=== PATIENT | female | born 1985 | race American Indian/Alaskan Native ===

== ENCOUNTER 2016-10-21 16:23 | Outpatient (CLI) | payer BC, MEDICAID ==
[2016-10-21] MEDS ORDERED: LACTATED RINGERS 1,000 ML ONE ×2 (16:54→19:09)
[2016-10-21] MEDS ORDERED: LACTATED RINGERS 500 ML IV ONE (18:45)
[2016-10-21 20:39] LABS: Bilirubin,Urine NEG (Negative); Blood,Urine SM (Negative); Ketones,Urine 80 mg/dL (Negative); Leukocyte Esterase,Urine NEG (Negative); Mucus,Urine FEW /HPF; Nitrite,Urine NEG (Negative); Protein,Urine <15 mg/dL mg/dL (Negative); RBC,Urine < 1.0 /HPF (0.0-6.0); Urobilinogen,Urine < 2.0 mg/dL (<2.0)
[2016-10-21 20:44] LABS: Anion Gap 20 mmol/L; Blood Urea Nitrogen 6 mg/dL (7-17); Calcium 9.2 mg/dL (8.4-10.2); Carbon Dioxide 20 mmol/L (22-30); Chloride 100.2 mmol/L (98-107); Glucose 72 mg/dL (65-100); Potassium 3.7 mmol/L (3.6-5.0); Sodium 136 mmol/L (137-145)
[2016-10-21] MEDS ORDERED: NACL 0.9% 1000 ML 1,000 ML IV ONE (21:00)
--- NOTE | 2016-10-21 22:04 | Ultrasound Report ---
FINAL REPORT PROCEDURE: US OB BPP WO NON-STRESS TECHNIQUE: Real-time limited sonographic examination was performed for evaluation of biophysical profile for each fetus with image documentation (1 or more fetuses). CPT 42273 HISTORY: Diabetes COMPARISON: No prior studies are available for comparison. FINDINGS: breathing movements: 2. movements: 2. posterior and tone: 0. Qualitative amniotic fluid volume: 2. Total biophysical profile score: 6/8. Heart rate: 139 beats per minute. Questionable amniotic band noted in the inferior aspect of the gestational sac. IMPRESSION: Biophysical profile is 6/8 due to decreased posterior and tone.
--- NOTE | 2016-10-21 23:12 | Ultrasound Report ---
FINAL REPORT PROCEDURE: US OB LIMITED TECHNIQUE: Real-time limited sonographic examination was performed for evaluation of placenta for each fetus with image documentation (1 or more fetuses). CPT 45689 HISTORY: javier only COMPARISON: No prior studies are available for comparison. FINDINGS: Placental band noted in the left lower quadrant. Amniotic fluid index is 15.5 centimeters. Heart rate is 138 beats per minute. IMPRESSION: Placental band noted in the left lower quadrant. Amniotic fluid index is 15.5 centimeters. Heart rate is 138 beats per minute.
[2016-10-22] MEDS ORDERED: VISTARIL ONE
[2016-10-22] MEDS ORDERED: VISTARIL PO ONE (23:50)
== END 2016-10-22 | disposition home or self-care (01) ==
LOC: TRG 16:23
PROVIDERS: ATTEND Obstetrics & Gynecology
DX: O24.313 Unspecified pre-existing diabetes mellitus in pregnancy, third trimester (principal); E11.9 Type 2 diabetes mellitus without complications; Z3A.34 34 weeks gestation of pregnancy
CPT/HCPCS: 36415; 76815; 76819; 80048; 81001; 96360; 96361; J7030; J7120; Q0177

== ENCOUNTER 2016-10-29 17:49 | Outpatient (CLI) | payer BC, MEDICAID ==
[2016-10-29] MEDS ORDERED: LACTATED RINGERS 500 ML IV ONE (18:00)
[2016-10-29 18:29] VITALS: BP 123/60
== END 2016-10-29 19:48 | disposition home or self-care (01) ==
LOC: TRG 17:49
PROVIDERS: ATTEND Obstetrics & Gynecology
DX: Z34.93 Encounter for supervision of normal pregnancy, unspecified, third trimester (principal); Z3A.35 35 weeks gestation of pregnancy
CPT/HCPCS: 59025

== ENCOUNTER 2016-11-11 09:59 | Inpatient (IN) | payer BC, MEDICAID ==
--- NOTE | 2016-11-10 16:11 | History and Physical Report ---
History of Present Illness Date of examination: 11/05/16 Chief complaint: IUP@37 3/7wga( on day of surgery) who presents for repeat c/s w/ BTL, with GDM and preeclampsia History of present illness: Past History : 4 Term Births: 4 Living Children: 4 Para: 4 Aborta: 0 # 1 Delivery date: 2005 Weeks Gestation: 38 labor: no Delivery type: vag/ Delivery location: [facility] Sex: female/female weight: 5#8/6#4 Comments: Twins, vertex/vertex, vaginal delivery followed by c/s for baby b. # 2 Delivery date: 2008 Weeks Gestation: 39 labor: no Delivery type: Delivery location: [facility] Infant Sex: Female weight: 8#4 # 3 Delivery date: 07/13/2015 Weeks Gestation: 39 Delivery type: Anesthesia type: epidural Delivery location: [facility] Infant Sex: female weight: 8 Past Medical History: Reviewed history from 12/11/2014 and no changes required: IBS - dx 03/2014 GDM X 2 Past Surgical History: Reviewed history from 07/13/2015 and no changes required: positive; c/s x 3 Past Medical History Abnormal PAP: positive, after twin delivery 2005 ECTOR Exposure: negative Infertility: negative Uterine Anomaly: negative Uterine Surgery (not C/S): negative Other Gynecologic Problems: negative Social Hx: Patient is Genetic History Congenital Heart Defect: Mom: no Dad: no Mignon Disease: Mom: no Dad: no Thalassemia Mom: no Dad: no Neural Tube Defect Mom: no Dad: no Down's Syndrome Mom: no Dad: no Blane-Sachs Mom: no Dad: no Sickle Cell Disease/Trait Mom: no Dad: no Hemophilia Mom: no Dad: no Muscular Dystrophy Mom: no Dad: no Cystic Fibrosis Mom: no Dad: no Marlena Chorea Mom: no Dad: no Mental Retardation Mom: no Dad: no Fragile X Mom: no Dad: no Other Genetic/Chromosomal Disorder Mom: no Dad: no Child w/other defect Mom: no Dad: no Enviromental Exposures Xray Exposure: no Medication, drug, or alcohol use since LMP: no Chemical/Other Exposure: no Exposure to Cat Liter: no Hx of Parvovirus (Fifth Disease): no Active Medications (reviewed today): None Physical Exam General appearance: well nourished, healthy appearing, no distress Chest/Lungs: respiratory effort normal, lungs clear to auscultation Cardiovascular: normal rate and rhythm Past History - Obstetrical History : 4 Medications and Allergies Allergies Allergy/AdvReac Type Severity Reaction Status Date / Time nickel Allergy Hives Verified 08/28/16 04:11 Home Medications Medication Instructions Recorded Confirmed Last Taken Type Acetaminophen [Acetaminophen TAB] 1 - 2 tab PO Q6HR PRN #30 tablet 08/28/16 Unknown Rx Azithromycin [Zithromax Z-CAROLYN] 1 dose PO DAILY 5 Days 08/28/16 Unknown Rx #103/Iron Fumarate/FA 1 tab PO DAILY 08/28/16 08/28/16 Unknown History Sodium Chloride [Saline Nasal 1 - 2 sprays NS Q3HR PRN #1 bottle 08/28/16 Unknown Rx [place]] guaiFENesin/DEXTROMETHORPHAN 1 tab PO BID PRN #20 tab 08/28/16 Unknown Rx [Mucinex DM ER 600-30 mg TAB] Results All other labs normal. Assessment and Plan - Patient Problems (1) 37 weeks gestation of Status: Acute (2) Maternal care for scar from previous delivery Status: Acute Qualifiers: Previous delivery type: P (3) Sterilization Status: Acute (4) Preeclampsia Status: Acute Qualifiers: Trimester: T (5) Gestational diabetes mellitus (GDM) affecting , antepartum Status: Acute (6) Carrier of group B Streptococcus Status: Acute
[~2016-11-11 09:59] MED LIST: ANCEF/STERILE WATER 2 GM/20 ML 2 GM/20 ML SYRINGE IV NR; BICITRA PO SCH; EMLA TP PRN; PEPCID IV SCH; PITOCin/NS 20 UNIT/1000ML DRIP 20 UNITS/1,000 ML BAG IV SCH; REGLAN IV SCH
[2016-11-11] MEDS: LACTATED RINGERS 1,000 ML IV SCH ×2 (10:35→13:00)
[2016-11-11 11:33] LABS: Basophils % (Auto) 0.2 % (0.0-1.8); Eosinophils % (Auto) 0.5 % (0.0-4.3); Hematocrit 21.2 % (30.3-42.9); Hemoglobin 6.8 gm/dl (10.1-14.3); Mean Corpuscular HGB Conc 32 % (30-34); Mean Corpuscular Volume 76 fl (79-97); Platelet Count 206 K/mm3 (140-440); Red Blood Count 2.77 M/mm3 (3.65-5.03); Red Cell Distribution Width 16.4 % (13.2-15.2); White Blood Count 9.6 K/mm3 (4.5-11.0)
[2016-11-11 11:42] LABS: Mean Corpuscular Hemoglobin 25 pg (28-32)
--- NOTE | 2016-11-11 13:02 | Anesthesia Consultation ---
Anesthesia Consult and Med Hx Date of service: 11/11/16 - Airway Anesthetic Teeth Evaluation: Good ROM Head & Neck: Adequate Mental/Hyoid Distance: Adequate Mallampati Class: Class III Intubation Access Assessment: Possibly Difficult - Pre-Operative Health Status ASA Pre-Surgery Classification: ASA3 Proposed Anesthetic Plan: Epidural, Spinal - Pulmonary Hx Asthma: No COPD: No Hx Pneumonia: No - Cardiovascular System Hx Hypertension: Yes (with this ) - Central Nervous System Hx Seizures: No Hx Psychiatric Problems: No - Endocrine Hx Renal Disease: No Hx End Stage Renal Disease: No Hx Non-Insulin Dependent Diabetes: Yes (gestational diabetes) Hx Hypothyroidism: No Hx Hyperthyroidism: No - Hematic Hx Anemia: No Hx Sickle Cell Disease: No - Other Systems Hx Alcohol Use: No Hx Obesity: Yes (morbid obesity) - Additional Comments Anesthesia Medical History Comments: repeat x4, pre-eclampsia
[2016-11-11] MEDS ORDERED: ZOFRAN IV PRN ×2 (13:03→17:49)
[2016-11-11] MEDS ORDERED: NARCAN 0.4 MG/1 ML IV PRN ×2 (13:03→17:49)
[2016-11-11] MEDS ORDERED: TORADOL IV PRN ×2 (13:03→17:49)
[2016-11-11] MEDS ORDERED: DILAUDID IV PRN (13:03)
[2016-11-11] MEDS ORDERED: NUBAIN IV PRN (13:03)
--- NOTE | 2016-11-11 13:03 | Anesthesia Day of Surgery ---
Anesthesia Day of Surgery - Day of Surgery Patient Examined: Yes Patient H&P Reviewed: Yes Patient is NPO: Yes
[2016-11-11] MEDS ORDERED: NACL 0.9% 500 ML 500 ML IV SCH (13:09)
[2016-11-11] MEDS ORDERED: MORPHINE ONE (13:39)
[2016-11-11] MEDS ORDERED: WATER FOR IRRIG STERILE IR ONE (13:40)
[2016-11-11] MEDS ORDERED: NACL 0.9% IR ONE (13:40)
[2016-11-11] MEDS ORDERED: BENADRYL IV PRN (14:00)
[2016-11-11] MEDS ORDERED: SODIUM CHLORIDE FLUSH SYRINGE 10 ML IV NR (14:00)
[2016-11-11] MEDS ORDERED: ePHEDrine SULFATE ONE (14:04)
[2016-11-11] MEDS ORDERED: ANCEF/STERILE WATER 2 GM/20 ML IV ONE (14:10)
[2016-11-11] MEDS ORDERED: NACL 0.9% 1000 ML 1,000 ML ONE (14:24)
[2016-11-11] MEDS ORDERED: XYLOCAINE MPF 2% ONE (14:24)
[2016-11-11 14:26] LABS: Hematocrit 27.1 % (30.3-42.9); Hemoglobin 8.5 gm/dl (10.1-14.3); Mean Corpuscular HGB Conc 31 % (30-34); Mean Corpuscular Volume 77 fl (79-97); Platelet Count 158 K/mm3 (140-440); Red Blood Count 3.54 M/mm3 (3.65-5.03); Red Cell Distribution Width 16.3 % (13.2-15.2); White Blood Count 7.4 K/mm3 (4.5-11.0)
[2016-11-11 14:27] LABS: Basophils % (Auto) 0.5 % (0.0-1.8); Eosinophils % (Auto) 0.4 % (0.0-4.3); Mean Corpuscular Hemoglobin 24 pg (28-32)
[2016-11-11] MEDS ORDERED: VERSED ONE (14:39)
[2016-11-11] MEDS ORDERED: DIPRIVAN 10 MG/ML IV ONE (14:44)
[2016-11-11] MEDS ORDERED: ZOFRAN ONE (15:16)
--- NOTE | 2016-11-11 15:41 | Operative Report ---
Operative Report Operative Report: Date of procedure: 11/11/2016 Pre-operative diagnosis: 1. Intrauterine at 37 weeks 2. Previous 3 3. Mild preeclampsia 4. Gestational diabetes on glyburide 5. Desires sterilization Post-operative diagnosis: 1. Intrauterine at 37 weeks 2. Previous 3 3. Mild preeclampsia 4. Gestational diabetes on glyburide 5. Desires sterilization 6. Pelvic adhesions Procedure name(s): 1. Low transverse section 2. Bilateral tubal ligation modified Gaby (patient declined bilateral salpingectomy for sterilization) 3. Lysis of adhesions Surgeon: Bekah Ann MD Repair Specialist: Melva Jurado Anesthesia: Spinal Findings: Liveborn female infant. Weight 6 lbs. 15 oz. Apgars 8 at 1 minute 9 at 5 minutes. Small uterine fibroids. Grossly normal tubes and ovaries. Dense fascial adhesions and adhesions of the uterus the anterior abdominal wall. Anesthesiologist: Dr. Bruno Complications: None EBL: 700 mL Procedure: After risks, benefits, and complications and alternatives and consequences, were discussed with patient, and she voiced her understanding and desired to proceed. Patient was taken to the OR, where spinal anesthesia was placed. She was then placed in the left lateral tilt position, and prepped and draped in the usual sterile fashion. After timeout was performed, and an appropriate level of anesthesia was noted, a Pfannenstiel incision was made and extended to the fascia. The fascia was incised and extended in a lateral direction. The overlying fascia was sharply dissected away from the underlying rectus muscles in the superior-inferior direction. The midline was entered bluntly. The uterus had dense adhesion to the anterior abdominal wall. With both blunt and sharp dissection the uterus was released. The bladder was adhered to mid anterior uterus. Again with both sharp and blunt dissection the bladder flap was created. A transverse incision was made in the lower uterine segment and extended in the superior lateral direction with finger fractionation. Clear fluid was noted. The was delivered from the cephalic position with spontaneous cry and excellent tone. The cord was doubly clamped and cut. The infant's mouth and nose were bulb suctioned. And the was given to the resuscitation team present. [Cord blood was obtained.] The placenta was manually extracted. The uterus was exteriorized and cleaned any products of conception and placental tissue. The incision was reapproximated using 0 Vicryl in a running interlocking stitch. Hemostasis was obtained and the incision with 0 Vicryl with an interrupted [id number]. Grossly normal tubes and ovaries were noted. Once confirmation was obtained from the patient to proceed with sterilization, the right tube was grasped with a Miracle clamp. The tube was elevated. Then doubly ligated with 0 Vicryl, and excised. The same procedure was performed on the patient's left tube. Both segments of tube were sent to pathology. Once hemostasis was noted, the uterus was allowed back into the pelvic cavity. The pelvis was irrigated with warm normal saline. Attention was again turned to the areas of tubes where procedure was performed. Hemostasis was noted on both areas. Once hemostasis was noted, Tisseel was applied to the anterior surface of the incision and tubal segments. Once hemostasis was noted, Tisseel was applied to the anterior surface of the incision. Once hemostasis was noted, Interceed was applied to the anterior aspect of the uterus for adhesion prevention. Once hemostasis was noted, attention was turned to the rectus muscles. The muscles were unable to be reapproximated. Once hemostasis was noted, the fascia was reapproximated using 0 Vicryl in a simple running stitch. Once hemostasis was noted, the incision was irrigated with normal saline. The incision was reapproximated using 4-0 Vicryl with a Jet needle in a subcuticular manner. Patient tolerated the procedure well she was taken to recovery room in stable condition. Counts were correct 3
--- NOTE | 2016-11-11 16:00 | Post Anesthesia Evaluation ---
- Post Anesthesia Evaluation Patient Participated: Yes Airway Patent: Yes Stable Respiratory Function: Yes Nausea/Vomiting: No Temp > 96.8F: Yes Pain Manageable: Yes Adequeate Hydration: Yes Anesthesia Complications: No Block Receding Appropriately: Yes Patient on Ventilator: No
[2016-11-11] MEDS ORDERED: MAGNESIUM SULFATE 40GM/1000ML 40 GM/1,000 ML BAG IV SCH (17:00)
[2016-11-11] MEDS ORDERED: PITOCin/NS 20 UNIT/1000ML DRIP 20 UNITS/1,000 ML BAG IV SCH (17:49)
[2016-11-11] MEDS ORDERED: PHENERGAN PR PRN (17:49)
[2016-11-11] MEDS ORDERED: LANSINOH TP PRN (17:49)
[2016-11-11] MEDS ORDERED: SODIUM CHLORIDE FLUSH SYRINGE 10 ML IV SCH (17:49)
[2016-11-11] MEDS ORDERED: MORPHINE IV PRN (17:49)
[2016-11-11] MEDS ORDERED: TUCKS PAD TP PRN (17:49)
[2016-11-11] MEDS ORDERED: MAGNESIUM SULFATE 40GM/1000ML 40 GM/1,000 ML BAG IV NR (17:49)
[2016-11-11] MEDS ORDERED: LACTATED RINGERS 1,000 ML IV SCH ×2 (17:49→19:00)
[2016-11-11] MEDS ORDERED: MYLICON PO PRN (17:49)
[2016-11-11] MEDS ORDERED: MILK OF MAGNESIA PO PRN (17:49)
[2016-11-11] MEDS: MORPHINE IV PRN ×2 (18:50→23:36)
[2016-11-11] MEDS: ANCEF/NS 1 GM/50 ML 1 GM/50 ML BAG IV SCH (20:35)
[2016-11-12] MEDS: ANCEF/NS 1 GM/50 ML 1 GM/50 ML BAG IV SCH (04:50)
[2016-11-12] MEDS ORDERED: BOOSTRIX IM ONE (06:00)
--- NOTE | 2016-11-12 06:32 | Progress Note ---
Assessment and Plan - Patient Problems (1) Preeclampsia Onset Date: Unknown Current Visit: Yes Status: Acute Qualifiers: Trimester: T Plan to address problem: BP wnl; no elevated BPs as of this note MGSO4 continues @ 2gm/hr D/C @ 24hrs post delivery. latest Mag level 4.8 Pt A&O X 3 Denies VILCHIS, blurred vision, chest pain. (2) delivery delivered Onset Date: ~11/11/16 Current Visit: No Status: Acute Plan to address problem: Pt w/o complaint Caring for NB VSS FF below umb Lochia small Dressing D&I, will remove later this AM Admission H&H 01/21 post section 03/29 Pt is asymptomatic of anemia. AM H&H pending. Stable s/p repeat section; mild PreE; GDM. P: continue pathway, MGSO4 adn close observation. Blood is on hold and pt is aware of possible need for transfusion. Will consult with Subjective - Subjective Date of service: 11/12/16 (pt awake sitting in bed No c/o voiced) Principal diagnosis: Day#1 Patient reports: appetite normal, voiding normally (clear yellow urine to BSB), pain well controlled, flatus Gable: doing well Objective - Vital Signs Latest vital signs: Vital Signs Temp Pulse Pulse Resp BP BP Pulse Ox 11/12/16 04:40 98.6 F 78 16 123/68 11/12/16 00:00 98.6 F 77 16 113/61 11/11/16 19:30 98.6 F 74 16 136/83 11/11/16 17:20 97.9 F 74 20 103/52 11/11/16 16:42 70 9 L 105/60 11/11/16 16:41 70 9 L 105/60 100 11/11/16 16:40 67 13 79/58 100 11/11/16 16:38 77 15 94/56 100 11/11/16 16:36 87 13 94/56 100 11/11/16 16:35 69 9 L 94/56 99 11/11/16 16:34 68 13 119/76 100 11/11/16 16:32 69 15 119/76 99 11/11/16 16:30 74 13 119/76 100 11/11/16 16:28 70 17 98/45 99 11/11/16 16:26 73 16 98/45 99 11/11/16 16:25 73 16 98/45 99 11/11/16 16:24 66 11 L 133/79 100 11/11/16 16:22 68 13 133/79 100 11/11/16 16:20 78 12 133/79 100 11/11/16 16:18 74 14 127/82 100 11/11/16 16:16 87 12 127/82 99 11/11/16 16:15 93 H 14 127/82 99 11/11/16 16:14 93 H 16 116/75 100 11/11/16 16:12 79 14 116/75 99 11/11/16 16:10 69 12 116/75 99 11/11/16 16:08 68 11 L 119/75 100 11/11/16 16:06 74 12 119/75 100 11/11/16 16:05 75 11 L 119/75 99 11/11/16 16:04 76 12 121/75 99 11/11/16 16:02 73 13 121/75 100 11/11/16 16:00 74 15 121/75 100 11/11/16 15:55 78 16 106/57 100 11/11/16 15:50 96 H 14 118/65 100 11/11/16 15:45 82 13 119/72 98 11/11/16 15:40 80 14 125/82 100 11/11/16 15:35 86 14 105/54 100 11/11/16 15:30 97.6 F 104 H 23 106/54 100 11/11/16 15:28 99 11/11/16 15:25 97.6 F 104 H 23 106/54 100 11/11/16 13:28 85 119/50 11/11/16 11:01 95 H 120/68 11/11/16 10:35 98.4 F 18 Intake and Output 11/11/16 11/11/16 11/12/16 14:59 22:59 06:59 Intake Total 2400 350 400 Output Total 900 2800 Balance 2400 -550 -2400 Intake: IV 2400 350 ANCEF/NS 1 GM/50 ML 1 gm 50 In 50 ml @ 100 mls/hr IV Q8H MANJU Rx#:[id number] Lactated Ringers 1,000 ml 1000 @ 2250 mls/hr IV PREOP MANJU Rx#:[id number] Intake, Free Water 400 Output: Urine 900 2800 Indwelling Catheter 400 2800 Uretheral ([place]) 300 Other: Total, Output Amount 400 800 Weight 225 lb Estimated Blood Loss 700 Patient Weight 11/12/16 06:59 Weight 225 lb - Exam Breasts: Present: Cardiovascular: Present: Regular rate Lungs: Present: Clear to auscultation, Normal air movement Abdomen: Present: normal appearance, soft, normal bowel sounds Uterus: Present: normal, fundal height below umbilicus Extremities: Present: edema Deep Tendon Reflex Grade: Normal +2 Incision: Present: dry, intact, dressed (to be removed this AM) - Labs Labs: Abnormal lab results 11/11/16 11/11/16 11/11/16 Range/Units 10:35 10:35 13:25 RBC 2.77 L 3.54 L (3.65-5.03) M/mm3 Hgb 6.8 L 8.5 L (10.1-14.3) gm/dl Hct 21.2 L 27.1 L (30.3-42.9) % MCV 76 L 77 L (79-97) fl MCH 25 L 24 L (28-32) pg RDW 16.4 H 16.3 H (13.2-15.2) % Daniels % (Auto) 8.7 H 8.4 H (0.0-7.3) % Magnesium (1.7-2.3) mg/dL Crossmatch See Detail 11/11/16 11/12/16 Range/Units 18:40 01:11 RBC (3.65-5.03) M/mm3 Hgb (10.1-14.3) gm/dl Hct (30.3-42.9) % MCV (79-97) fl MCH (28-32) pg RDW (13.2-15.2) % Daniels % (Auto) (0.0-7.3) % Magnesium 3.2 H 4.8 H (1.7-2.3) mg/dL Crossmatch
[2016-11-12 06:34] LABS: Hemoglobin 8.3 gm/dl (10.1-14.3)
[2016-11-12 08:23] LABS: Magnesium 5.4 mg/dL (1.7-2.3)
[2016-11-12] MEDS: PERCOCET 5/325 PO PRN ×2 (13:30→19:59)
--- NOTE | 2016-11-12 15:30 | Progress Note ---
Subjective Date of service: 11/12/16 Principal diagnosis: Day#1 Interval history: 1st POD after Patient is in the bed, comfortable. Pain is well controlled with pain meds. No residual neurological deficit. Has not ambulated Mg2SO4 infusion. No anesthesia complications Objective - Constitutional Vitals: Vital Signs - 12hr 11/12/16 11/12/16 11/12/16 04:40 08:11 10:14 Temperature 98.6 F 97.9 F 97.8 F Pulse Rate [ 78 74 75 Right Radial] Respiratory 16 16 18 Rate Blood Pressure 123/68 122/62 120/58 [Right Arm] 11/12/16 12:16 Temperature 98.0 F Pulse Rate [ 80 Right Radial] Respiratory 16 Rate Blood Pressure 118/62 [Right Arm] - Labs CBC & Chem 7: 11/12/16 05:50 Labs: Abnormal lab results 11/11/16 11/12/16 11/12/16 Range/Units 18:40 01:11 05:50 Hgb 8.3 L (10.1-14.3) gm/dl Hct 26.0 L (30.3-42.9) % Magnesium 3.2 H 4.8 H (1.7-2.3) mg/dL 11/12/16 11/12/16 Range/Units 06:52 12:36 Hgb (10.1-14.3) gm/dl Hct (30.3-42.9) % Magnesium 5.4 H 5.5 H (1.7-2.3) mg/dL
[2016-11-12 16:16] VITALS: BP 116/58
[2016-11-13] MEDS: MOTRIN PO PRN ×2 (00:04→18:05)
[2016-11-13] MEDS: PERCOCET 5/325 PO PRN ×2 (01:34→13:10)
--- NOTE | 2016-11-13 07:29 | Discharge Summary ---
Providers - Providers Date of Admission: 11/11/16 09:59 Date of discharge: 11/13/16 ("I want to go home today") Attending physician: CRICKET RITTER 11/11/16 17:49 Consult to Drafter Patent [CONS] Routine Reason For Exam: Primary care physician: CRICKET RITTER Hospitalization Reason for admission: section Delivery: Procedure: bilateral tubal ligation, repeat low transverse Episiotomy: none Laceration: none Incision: normal, dry, intact Other procedures: none complications: none Discharge diagnosis: IUP at term delivered [place] baby: female Hospital course: uncomplicated section with tubal Pt w/o complaint VSS BP 120/80 FF below umb Lochia scant Incision D&I H&H 03/31 stable since admission Pt is chronically anemic Without sx. Po iron @ d/c. Doing well s/p section. P: d/c today with instructions RTO one week for postop care and BP check Condition at discharge: Good Disposition: DISCHARGED TO HOME OR SELFCARE - Discharge Diagnoses (1) delivery delivered Status: Acute Comment: rto 1 week postop care Plan - Discharge Medications Prescriptions: Docusate Sodium [Colace] 100 mg PO BID PRN #30 capsule PRN Reason: Constipation Ferrous Sulfate [Feosol 325 MG tab] 325 mg PO BID #90 tablet Ibuprofen [Motrin 800 MG tab] 800 mg PO TID PRN #30 tablet PRN Reason: Pain oxyCODONE /ACETAMINOPHEN [Percocet 5/325 mg] 1 - 2 tab PO Q4HR PRN #30 tablet PRN Reason: Pain - Provider Discharge Summary Activity: routine, no sex for 6 weeks, no heavy lifting 4 weeks, no strenuous exercise Diet: routine Instructions: routine Additional instructions: [] Smoking cessation referral if applicable(refer to patient education folder for contact #) [] Refer to [facility] Booklet Call your doctor immediately for: * Fever > 100.5 * Heavy vaginal bleeding ( >1 pad per hour) * Severe persistent headache * Shortness of breath * Reddened, hot, painful area to leg or breast * Drainage or odor from incision. * Keep incision clean and dry at all times and follow doctor's instructions regarding bathing/showering - Follow up plan Follow up: CRICKET RITTER MD [Primary Care Provider] - 11/19/16 (Congratulations! Please call [phone] to schedule your postoperative visit in one week. Take medications as prescribed. Call with headache, unrelieved with Tylenol, blurred vision, chest pain. Call with any concerns. )
== END 2016-11-13 18:10 | disposition home or self-care (01) | DRG 765 ==
LOC: APU 09:59 → OB 17:35
PROVIDERS: ADMIT Obstetrics & Gynecology; ATTEND Obstetrics & Gynecology
PROC: 10D00Z1 Extraction of Products of Conception, Low, Open Approach (ICD-10-PCS; principal; 2016-11-11)
PROC: 0UN90ZZ Release Uterus, Open Approach (ICD-10-PCS; 2016-11-11)
PROC: 0JN80ZZ Release Abdomen Subcutaneous Tissue and Fascia, Open Approach (ICD-10-PCS; 2016-11-11)
PROC: 0UB70ZZ Excision of Bilateral Fallopian Tubes, Open Approach (ICD-10-PCS; 2016-11-11)
DX: O14.94 Unspecified pre-eclampsia, complicating childbirth (principal); Z68.41 Body mass index [BMI] 40.0-44.9, adult; O34.211 Maternal care for low transverse scar from previous cesarean delivery; O24.425 Gestational diabetes mellitus in childbirth, controlled by oral hypoglycemic drugs; N73.6 Female pelvic peritoneal adhesions (postinfective); O99.824 Streptococcus B carrier state complicating childbirth; O99.214 Obesity complicating childbirth; E66.01 Morbid (severe) obesity due to excess calories; Z30.2 Encounter for sterilization; Z3A.37 37 weeks gestation of pregnancy; Z37.0 Single live birth
CPT/HCPCS: 36415; 82947; 82962; 83735; 85014; 85018; 85025; 86850; 86900; 86901; 86920; 88302; 99211; C1765; G0463; J0690; J1170; J1885; J2250; J2270; J2300; J2405; J2590; J2704; J2765; J3475; J7030; J7120